=== PATIENT | female | born 1970 ===

== ENCOUNTER 2017-11-27 10:36 | Emergency (ER) | payer SELFPAY ==
[2017-11-27 10:50] VITALS: BP 118/76
--- NOTE | 2017-11-27 10:57 | UC ---
Skin Complaint HPI - HPI Summary HPI Summary: A 47 y/o F [place] [facility] [place] two infected bug bites on her LLE by her knee and ankle that are improving. The areas are erythematous. She has taken two penicillin ABX that she had left over from a previous infection, which she got in [place]. Patient would like a refill on ABX. Denies fever, chills, pain. - History of Current Complaint Chief Complaint: [facility] Time Seen by Provider: 11/27/17 10:40 Stated Complaint: SKIN COMPLAINT Hx Obtained From: Patient Hx Last Menstrual Period: 11/06/17 Onset/Duration: Still Present Onset Severity: Moderate Current Severity: Mild Pain Intensity: 0 Pain Scale Used: 0-10 Numeric Location: Other - LLE Character: Redness Associated Signs & Symptoms: Negative: Fever, Chills Related History: Insect Bite/Sting - Allergy/Home Medications Allergies/Adverse Reactions: Allergies Allergy/AdvReac Type Severity Reaction Status Date / Time No Known Allergies Allergy Verified 11/27/17 10:50 Review of Systems Constitutional: Negative - fever and chills Skin: Other - two erythematous areas on LLE - by knee, by ankle All Other Systems Reviewed And Are Negative: Yes PMH/Surg Hx/FS Hx/Imm Hx Previously Healthy: Yes Other Endocrine History: neg: DM Other Cardiovascular History: neg: HTN Other Respiratory History: neg: asthma - Surgical History Surgical History: Yes Surgery Procedure, Year, and Place: 3 c- sectipons. appendix - Family History Known Family History: Negative: Cardiac Disease, Hypertension, Diabetes - Social History Occupation: Unemployed Lives: Alone Alcohol Use: Weekly Substance Use Type: None Smoking Status (MU): Former Smoker When Did the Patient Quit Smoking/Using Tobacco: 2000 Household Exposure Type: Cigarettes Physical Exam - Summary Physical Exam Summary: VITAL SIGNS: Reviewed. GENERAL: Patient is a well-developed and nourished FEMALE who is lying comfortable in the stretcher. Patient is not in any acute respiratory distress. HEAD AND FACE: Normocephalic EYES: PERRLA, EOMI x 2. EARS: Hearing grossly intact. MOUTH: Oropharynx within normal limits. NECK: Supple, trachea is midline, no adenopathy, no JVD, no carotid bruit. CHEST: Symmetric, no tenderness at palpation LUNGS: Clear to auscultation bilaterally. No wheezing or crackles. CVS: Regular rate and rhythm, S1 and S2 present, no murmurs or gallops appreciated. ABDOMEN: Soft, non-tender. Bowel sounds are normal. No abdominal abnormal pulsations. EXTREMITIES: Full ROM in all major joints, no edema, no cyanosis or clubbing. NEURO: Alert and oriented x 3. No acute neurological deficits. Speech is normal and follows commands. SKIN: Dry and warm. Erythema at two areas of L leg: L lateral aspect of ankle and medial aspect of L distal thigh. Triage Information Reviewed: Yes Vital Signs: Initial Vital Signs Temp 98.3 F 11/27/17 10:45 Pulse 76 11/27/17 10:45 Resp 18 11/27/17 10:45 BP 118/76 11/27/17 10:45 Pulse Ox 100 11/27/17 10:45 Vital Signs Reviewed: Yes Course/Dx - Course Course Of Treatment: Patient is a 3-year-old female who presents to the urgent care with insect bites that have become infected. He since that the patient has developed cellulitis. The patient was given a prescription for Keflex and she will be discharged home with follow-up with primary care physician. Patient is hemodynamically stable alert and oriented 3. - Diagnoses Provider Diagnoses: Insect bites/cellulitis Discharge - Sign-Out/Discharge Documenting (check all that apply): Patient Departure - DC All imaging exams completed and their final reports reviewed: No Studies - Discharge Plan Condition: Stable Disposition: HOME Prescriptions: Cephalexin CAP* [Keflex CAP*] 250 mg PO QID #40 cap Patient Education Materials: Cellulitis (ED) Referrals: [facility] [Outside] No Primary Care Phys,NOPCP [Primary Care Provider] - Additional Instructions: Take medications as instructed and adhere to plan Take Acetaminophen or ibuprofen for pain or fever Increase your fluid intake Return to the or go to the emergency department if symptoms worsen Follow-up with primary care physician in next 2-3 days - Billing Disposition and Condition Condition: STABLE Disposition: Home - Attestation Statements Document Initiated by Scribe: Yes Documenting Scribe: Isela Presley Provider For Whom Scribe is Documenting (Include Credential): Ramsey Diaz MD Scribe Attestation: Isela Soria, scribed for Ramsey Diaz MD on 11/27/17 at 1139. Scribe Documentation Reviewed: Yes Provider Attestation: The documentation as recorded by the scribe, Isela Presley accurately reflects the service I personally performed and the decisions made by me, Ramsey Diaz MD
== END 2017-11-27 11:02 | disposition home or self-care (01) ==
LOC: UCEAST 10:36
DX: S80.862D Insect bite (nonvenomous), left lower leg, subsequent encounter (principal); L03.116 Cellulitis of left lower limb; Z87.891 Personal history of nicotine dependence
CPT/HCPCS: 99202; G0463